=== PATIENT | male | born 1945 | race Caucasian/White ===

== ENCOUNTER 2022-03-24 05:24 | Day surgery (SDC) | payer MEDICARE, BC ==
[2022-03-17 11:45] LABS: BASOPHILS # (AUTO) 0.1 X10'3 (0-0.2); BASOPHILS % (AUTO) 0.8 % (0-1); EOSINOPHILS % (AUTO) 0.3 % (0-6); LYMPHOCYTES # (AUTO) 0.8 X10'3 (1.1-4.8); LYMPHOCYTES % (AUTO) 10.7 % (21-51); MEAN CORPUSCULAR HEMOGLOBIN 34.3 PG (27.0-31.0); MEAN PLATELET VOLUME 6.6 FL (7.4-10.4); MONOCYTES # (AUTO) 0.6 X10'3 (0-0.9); MONOCYTES % (AUTO) 8.2 % (2-12); NEUTROPHILS # (AUTO) 5.6 X10'3 (1.8-7.7); PRE OP HEMATOCRIT 43.9 % (42.0-52.0); PRE OP HEMOGLOBIN 15.4 g/dL (14.0-17.9); PRE OP PLATELET COUNT 224 X10'3 (140-440); RED BLOOD COUNT 4.48 X10'6 (4.70-6.10); RED CELL DISTRIBUTION WIDTH 12.8 % (11.5-14.5)
[2022-03-17 12:00] LABS: ALBUMIN 3.8 G/DL (3.4-5.0); ALBUMIN/GLOBULIN RATIO 1.2 (1.1-1.5); ALKALINE PHOSPHATASE 102 IU/L (46-116); BLOOD UREA NITROGEN 9 MG/DL (7-18); CALCIUM 9.1 MG/DL (8.5-10.1); CHLORIDE 103 MMOL/L (99-107); PRE OP ALT 29 U/L (30-65); PRE OP ANION GAP 6 (8-16); PRE OP AST 28 U/L (10-37); PRE OP BILIRUB, TOTAL 0.5 MG/DL (0.0-1.0); PRE OP GLUCOSE 100 MG/DL (70-104); PRE OP POTASSIUM 4.5 MMOL/L (3.4-5.1); PRE OP SODIUM 139 MMOL/L (135-145); TOTAL CARBON DIOXIDE 30.1 MMOL/L (24-32); TOTAL PROTEIN 7.1 G/DL (6.4-8.2); eGFR 82 ML/MIN
[~2022-03-24] VITALS: Ht 182.9 cm; Wt 88.1 kg
[2022-03-24] VITALS (11 sets, daily range): BP systolic 124–146; BP diastolic 81–87
[~2022-03-24 05:24] MED LIST: NO HOME MEDS; ringers solution, lacted 1,000 ML IV SCH
[2022-03-24] MEDS ORDERED: famotidine 20mg tablet PO ONE (05:30)
[2022-03-24] MEDS ORDERED: ceFAZolin inj. 2,000 MG in dextrose 5%-water 100 ML IV ONE (05:30)
[2022-03-24] MEDS ORDERED: BUPIVAcaine/PF 2.5 mg/ml (0.25%) 30ml vial ONE (06:45)
[2022-03-24] MEDS ORDERED: LIDOcaine 1% 30ml preserv. free vial ONE (06:45)
[2022-03-24] MEDS ORDERED: midazolam 1 mg/ML 2ml injection ONE (07:42)
[2022-03-24] MEDS ORDERED: LIDOcaine 2% (20mg/ml) 5ml vial ONE (08:24)
[2022-03-24] MEDS ORDERED: rocuronium 10mg/ml inj IV ONE (08:24)
[2022-03-24] MEDS ORDERED: fentaNYL /PF 50mcg/ml 5ml ampule ONE (08:24)
[2022-03-24] MEDS ORDERED: propofol inj 20 ML IV ONE (08:24)
[2022-03-24] MEDS ORDERED: ondansetron/PF 4mg/2ml inj ONE (08:25)
[2022-03-24] MEDS ORDERED: ePHEDrine 50MG/ML INJ. ONE (09:06)
[2022-03-24] MEDS ORDERED: 0.9 % SODIUM CHLORIDE 10 ML VIAL ONE (09:06)
[2022-03-24] MEDS ORDERED: ketorolac tromethamine 15mg/ml inj. IV ONE (09:10)
[2022-03-24] MEDS ORDERED: meperidine/PF 25mg/ml syringe IV PRN ×3 (09:10)
[2022-03-24] MEDS ORDERED: acetaminophen 1,000mg/100ml IV 100 ML IV PRN (09:10)
[2022-03-24] MEDS ORDERED: ondansetron/PF 4mg/2ml inj IV PRN (09:10)
[2022-03-24] MEDS ORDERED: ringers solution, lacted 1,000 ML IV SCH (09:10)
[2022-03-24] MEDS ORDERED: hydrALAZINE 20mg/ml inj. IV PRN (09:10)
[2022-03-24] MEDS ORDERED: morphine 4 MG/ML inj SYRINge IV PRN (09:10)
[2022-03-24] MEDS ORDERED: morphine 2 MG/ML inj. syringe IV PRN (09:10)
[2022-03-24] MEDS ORDERED: labetalol 20mg/4ml (5mg/ml) syringe IV PRN (09:10)
[2022-03-24] MEDS ORDERED: proCHLORperazine 10 MG/2 ml inj IV PRN (09:10)
[2022-03-24] MEDS ORDERED: glycopyrrolate 0.2mg/ml inj ONE (10:14)
[2022-03-24] MEDS ORDERED: neostigmine methylsulfate 1 MG/ML 10ml vial ONE (10:14)
--- NOTE | 2022-03-24 10:20 | NUR ---
Received from OR via [facility] , accompanied by Anesthesiologist ELSIE and report given by Anesthesiolgist. PATIENT WITH 3 ABDOMINAL BANDAIDS PRESENT. VSS. DENIES PAIN. VSS. SWOLLEN IN TESTICLE AREA- WILL CONTINUE TO ASSESS. Addendum: 03/24/22 at 1043 by Fredy Pennington RN, RN Amended: Links added.
[2022-03-24] MEDS ORDERED: HYDROcodone/acetaminophen 5mg/325mg tablet PO PRN (10:25)
--- NOTE | 2022-03-24 12:07 | NUR ---
PATIENT TAKEN TO [facility] TO FURTHER HIS RECOVERY AND VOID. SON PRESENT TO BE WITH FATHER. Addendum: 03/24/22 at 1207 by Fredy Pennington RN, RN Amended: Links added.
--- NOTE | 2022-03-24 13:22 | NUR ---
PT VOIDED 300ML. BLADDER SCAN PERFORMED, 74 ML REMAIN IN BLADDER. DR SANCHEZ MADE AWARE AND STATED LESS THAN 100ML WAS OKAY TO GO HOME. DISCHARGE INSTRUCTIONS HAVE BEEN PROVIDED.
--- NOTE | 2022-03-24 13:25 | NUR ---
ALL DISCHARGE CRITERIA HAS BEEN MET. VSS, PAIN AT A TOLERABLE LEVEL, VOIDING AND ABLE TO SAFELY AMBULATE AND TRANSFER SELF. IV TAKEN OUT WITHOUT ANY COMPLICATIONS. ALL DISCHARGE INSTRUCTIONS COVERED WITH PATIENT AND ALL QUESTIONS ANSWERED. PATIENT TAKEN OUT VIA WHEELCHAIR TO PERSONAL VEHICLE WHERE FAMILY/FRIEND DROVE PATIENT HOME.
== END 2022-03-24 13:20 | disposition home or self-care (01) ==
LOC: PAS 05:24
PROVIDERS: ATTEND Surgery
DX: K43.2 Incisional hernia without obstruction or gangrene (principal); K42.9 Umbilical hernia without obstruction or gangrene; K40.30 Unilateral inguinal hernia, with obstruction, without gangrene, not specified as recurrent; Z79.899 Other long term (current) drug therapy; Z98.890 Other specified postprocedural states; Z72.89 Other problems related to lifestyle; Z86.14 Personal history of Methicillin resistant Staphylococcus aureus infection
CPT/HCPCS: 36415; 49560; 49568; 49585; 49650; 80053; 82948; 85025; 93005; C1781; J0690; J1885; J2250; J2405; J2704; J2710; J3010; J3490; J7030; J7060; J7120; Z7506; Z7508; Z7512; A4215; A4618

== ENCOUNTER 2023-07-17 18:05 | Emergency (ER) | payer MEDICARE, BC ==
[~2023-07-17] VITALS: Ht 185.4 cm; Wt 85.9 kg
[~2023-07-17 18:05] MED LIST changes: -ringers solution, lacted 1,000 ML IV SCH
[2023-07-17 18:19] VITALS: BP 173/103; PULSE 75; RESP 18; TEMP 97.8; O2SAT 98
[2023-07-17] MEDS: LIDOcaine 1% 30ml preserv. free vial IJ STA (21:54)
[2023-07-17] MEDS: TETanus/Pertussis (Acell)/Diphther VAC/PF (Tdap-Adult) 0.5ml syringe IMVAC ONE (22:13)
== END 2023-07-17 22:18 | disposition home or self-care (01) ==
LOC: ER 18:05
DX: S01.111A Laceration without foreign body of right eyelid and periocular area, initial encounter (principal); W19.XXXA Unspecified fall, initial encounter
CPT/HCPCS: 12013; 70450; 90471; 90715; 99285; A6449